=== PATIENT | female | born 1990 | race African-American/Black ===

== ENCOUNTER 2019-04-19 22:00 | Emergency (ER) | payer SELFPAY | END 2019-04-19 22:20 | disposition home or self-care (01) | LOC: BURERS 22:00 | DX: K29.00 Acute gastritis without bleeding (principal); I10 Essential (primary) hypertension; K21.9 Gastro-esophageal reflux disease without esophagitis; F32.9 Major depressive disorder, single episode, unspecified; Z79.899 Other long term (current) drug therapy | CPT/HCPCS: 99283 ==